=== PATIENT | female | born 1975 | race Two or more races ===

== ENCOUNTER 2016-11-27 13:58 | Emergency (ER) | payer SELFPAY ==
[~2016-11-27] VITALS: Ht 175.3 cm; Wt 76.2 kg
[2016-11-27 15:28] VITALS: BP 143/88
[2016-11-27] MEDS ORDERED: methylPREDNISolone SOD SUCC 125 MG/2 ML VL IM ONE (15:45)
[2016-11-27] MEDS ORDERED: IPRATROPIUM BROM 0.5 MG/2.5ML INH SOL NEB ONE (15:45)
[2016-11-27] MEDS ORDERED: ALBUTEROL SULF 2.5 MG/0.5ML(0.5%) NEB SOLN NEB ONE (15:45)
[2016-11-27] MEDS ORDERED: LORazepam 2MG/ML-1ML VIAL IM ONE (15:45)
== END 2016-11-27 16:08 | disposition home or self-care (01) ==
LOC: ER 13:58
DX: J45.901 Unspecified asthma with (acute) exacerbation (principal); F41.9 Anxiety disorder, unspecified
CPT/HCPCS: 71010; 94640; 96372; 99284; J2060; J2930